=== PATIENT | female | born 1945 | race Caucasian/White ===

== ENCOUNTER 2017-06-12 09:03 | Day surgery (SDC) | payer MEDICARE ==
[~2017-06-12] VITALS: Ht 162.6 cm; Wt 72.6 kg
[~2017-06-12 09:03] MED LIST: ARMOUR THYROID60 MG PO; CALCIUM WITH M1 EACH PO; CALCIUM500 MG PO; CITALOPRAM HBR40 MG PO; D3-5050000 UNIT PO; ESTRADIOL2 MG PO; LEVOTHYROXINE75 MCG PO; MAXZIDE 75 MG-501 EA PO; PREDNISONE20 MG PO; RESTORIL15 MG PO; SERTRALINE HCL25 MG PO; SPIRIVA18 MCG IH; SYMBICORT 16010.2 GM IH; TRIAMTERENE-HC1 EAC1 PO; VENTOLIN HFA18 GM INH; VITAMIN D35000 UNIT PO; ZOLOFT50 MG PO
[2017-06-12] MEDS ORDERED: PANTOPRAZOLE SO40 MG PO (09:54)
[2017-06-12] MEDS ORDERED: METOPROLOL SUCC25 MG PO (09:55)
[2017-06-12] MEDS ORDERED: LEVOXYL75 MCG PO (09:56)
[2017-06-12] MEDS ORDERED: VITAMIN D5000 UNIT PO (10:24)
[2017-06-12] MEDS ORDERED: NEURONTIN300 MG PO (10:26)
--- NOTE | 2017-06-12 11:09 | NUR ---
THIS RN ASKED TO DELIVER PRE OP MEDICATIONS AND HAVE FLU VACCINE CONSENT SIGNED. CONSENT SIGNED BEFORE MEDICATIONS WERE GIVEN. WARM BLANKETS PROVIDED ANS WARM AIR TUNRED ON. BED RAILS UP, CALL LIGHT WITHIN REACH.
--- NOTE | 2017-06-12 12:07 | NUR ---
PATIENT BACK IN DAY SURGERY ROOM DIRECTLY FROM OR. C/O PAIN IN BILATERAL SHOULDERS. DENIED NEED FOR PAIN MEDICATION. PATIENT DROWSY, BUT AWAKENS EASILY TO VOICE. RIGHT CHEEK SURGICAL SITE WNL WITH OINTMENT COVERING INCISION. NO DRAINAGE SEEN. IV SITE WNL. GIVEN SIPS OF ICE WATER. WILL LET PATIENT REST/SLEEP. CALL LIGHT WITHIN REACH. AT BEDSIDE.
--- NOTE | 2017-07-10 15:10 | OR ---
[facility] [address], [place] [address] Signed DATE OF PROCEDURE: 06/12/17 PREOPERATIVE DIAGNOSIS: Right facial lesion. POSTOPERATIVE DIAGNOSIS: Right facial lesion. PROCEDURE: Wide local excision, right facial lesion. SURGEON: Ayush Washburn M.D. ANESTHESIA: General mask, Rufina Heaton CRNA. PREOP HISTORY Catalina is a 71-year-old lady with a pigmented lesion on the right face just at the right infraorbital rim. This has been growing. It is a dark pigmented lesions suspicious for neoplasia and she is taken to the operating room for the above-mentioned procedures. OP ERATIVE PROCEDURE AND FINDINGS After informed consent, the patient was taken to the operating room, placed in supine position where general mask anesthesia was induced. The patient, procedure were verified. The right facial lesion was identified just on the right at the level of the infraorbital rim, measured about 15 x 20 mm was a slightly raised irregular lightly pigmented lesion. The right face was sterilely prepped and draped. Incision was drawn in a transverse direction with a mm to margins. Local anesthetic 1% Lidocaine with Epi was injected. The incision was made in an elliptical pattern about 4 cm in length. Skin lesion was excised with the subcutaneous dissection sent to pathology with a suture in the superior edge in formalin. The hemostasis was obta i steve with needle point cautery. The wound edges were elevated for cm or so to allow for tension-free closure. Closure was with 4-0 interrupted Vicryl subcu and 5-0 running nylon on the skin. Excellent cosmetic closure was obtained. Skin was cleansed and Neosporin was applied. The patient was awakened, transported to same day surgery in good condition. No complications. Blood loss minimal. Specimen to pathology, no drains. Ayush Washburn MD GC/Modl Electronically Signed By: AYUSH WASHBURN MD 07/10/17 1510 PATIENT NAME: QUENTIN PEREZ OPERATIVE REPORT DATE OF : 43 PHYSICIAN: AYUSH WASHBURN MD REPORT #: [id number] REPORT IS CONFIDENTIAL AND NOT TO BE RELEASED WITHOUT AUTHORIZATION [address] [address] Signed /[id number] cc: Farooq Walker DO Electronically Signed By: AYUSH WASHBURN MD 07/10/17 1510 PATIENT NAME: QUENTIN PEREZ OPERATIVE REPORT DATE OF : 43 PHYSICIAN: AYUSH WASHBURN MD REPORT #: [id number] REPORT IS CONFIDENTIAL AND NOT TO BE RELEASED WITHOUT AUTHORIZATION
== END 2017-06-12 13:18 | disposition home or self-care (01) ==
LOC: OPS 09:03 → DS 09:03 → OPS 12:00 → DS 12:00 → OPS 13:18
PROVIDERS: Otolaryngology
PROC: 0HB1XZZ Excision of Face Skin, External Approach (ICD-10-PCS; principal; 2017-06-12 12:00)
DX: L57.0 Actinic keratosis (principal); L81.4 Other melanin hyperpigmentation; J44.9 Chronic obstructive pulmonary disease, unspecified; E03.9 Hypothyroidism, unspecified; F32.9 Major depressive disorder, single episode, unspecified; I10 Essential (primary) hypertension; K21.9 Gastro-esophageal reflux disease without esophagitis; Z79.899 Other long term (current) drug therapy; Z90.49 Acquired absence of other specified parts of digestive tract; Z90.710 Acquired absence of both cervix and uterus; Z23 Encounter for immunization
CPT/HCPCS: 00300; 88305; 90662; G0008; J2250; J2405; J2704

== ENCOUNTER 2017-07-12 08:55 | Day surgery (SDC) | payer MEDICARE ==
[~2017-07-12] VITALS: Ht 162.6 cm; Wt 74.4 kg
[~2017-07-12 08:55] MED LIST changes: +LEVOXYL75 MCG PO; +METOPROLOL SUCC25 MG PO; +NEURONTIN300 MG PO; +PANTOPRAZOLE SO40 MG PO; +VITAMIN D5000 UNIT PO
--- NOTE | 2017-07-12 11:31 | NUR ---
07/12/17 1131 Annmarie Pugh 1123 EDIT: PT ON 8L VIA MASK ON ARRIVAL.
--- NOTE | 2017-07-12 19:13 | EKG ---
[facility] [address] [facility] [place] [address] Signed Normal sinus rhythm Right atrial enlargement Borderline ECG No previous ECGs available Confirmed by ISIS MORTON MD ([id number]) on 07/12/2017 7:13:43 PM Electronically Signed By: ISIS MORTON MD 07/12/171912 PATIENT NAME: QUENTIN PEREZ Dany Electrocardiogram DATE OF : 43 PHYSICIAN: ISIS MORTON MD REPORT #: [id number] REPORT IS CONFIDENTIAL AND NOT TO BE RELEASED WITHOUT AUTHORIZATION
--- NOTE | 2017-07-13 07:49 | OR ---
[facility] [address], [place] [address] Signed DATE OF OPERATION: 07/12/2017 SURGEON: Mauri Rogers MD PREOPERATIVE DIAGNOSES: 1. Diarrhea alternating with constipation. 2. History of cholecystectomy in 2004. 3. Significant chronic obstructive pulmonary disease with home oxygen 3 L nasal cannula. 4. Family history of colitis. No family history of colon cancer. POSTOPERATIVE DIAGNOSES: 1. Scattered sigmoid and left-sided diverticular changes. 2. Polyps x2 (sigmoid and rectum). PROCEDURE: Total colonoscopy to cecum with cold morcellation polypectomy x1 and cold snare polypectomy x1. ANESTHESIA: Intravenous sedation propofol infusion. Mauri Hernandez CRNA INDICATION: This 71-year-old white woman is a patient of Dr. Farooq Walker and last seen by me in 2004 until recently where she was referred by Dr. Farooq Walker for consideration of diarrhea alternating with constipation. She underwent cholecystectomy in 2004. She has had diverticula documented in the past. She has no family history of colon cancer, but does have family history of colitis in her mother. She does have other medical problems including advanced COPD for which she requires home oxygen at 3 L nasal cannula. She is admitted at this time to undergo colonoscopy to better characterize her problem of diarrhea alternating with constipation. She understands the risks of bleeding, infection, and perforation related to colonoscopy and wished to proceed. FINDINGS: The prep was excellent. Complete colonoscopy was undertaken to the cecum. There was scattered diverticula of the sigmoid and left colon. There were two small polyps, one of the rectum, one of the sigmoid, both were excised completely, likely they were hyperplastic. They did not appear worrisome. The remaining colon was normal. Electronically Signed By: MAURI ROGERS MD 07/13/17 0749 PATIENT NAME: QUENTIN PEREZ OPERATIVE REPORT DATE OF : 43 PHYSICIAN: MAURI ROGERS MD REPORT #: [id number] REPORT IS CONFIDENTIAL AND NOT TO BE RELEASED WITHOUT AUTHORIZATION [facility] [address], [place] [address] Signed PROCEDURE IN DETAIL: The patient was brought to the endoscopy suite and placed in lateral decubitus position, given intravenous sedation with propofol infusional technique by the hospice case manager with full cardiopulmonary monitoring. Digital rectal examination was normal. An Olympus video colonoscope was passed in the rectum and manipulated throughout the colon, ultimately intubating the cecum itself. The ileocecal valve and appendiceal orifice were normal. The scope was withdrawn from that point. Examination throughout showed no sign of abnormality until the left colon and sigmoid diverticula were again noted. Further withdrawal of scope to the sigmoid showed a small sessile polyp approximately 4 to 6 mm in size. This was excised with cold snare polypectomy technique. The scope was withdrawn further and another similar polyp was noted in the rectosigmoid. This was excised with cold morcellation technique. Retroflexed view was unremarkable overall. The scope was removed, and patient was taken to recovery room in good condition. CONCLUDING DIAGNOSES: Polyps x2 and sigmoid and left-sided diverticulosis. PLAN: Recommend Citrucel 1 tablespoon each day. If she is still troubled in her bowel habits, she will let me know, we will work on that. She will return to the ongoing care of otherwise. Mauri Rogers MD JM/MODL /[id number] Electronically Signed By: MAURI ROGERS MD 07/13/17 0749 PATIENT NAME: QUENTIN PEREZ OPERATIVE REPORT DATE OF : 43 PHYSICIAN: MAURI ROGERS MD REPORT #: [id number] REPORT IS CONFIDENTIAL AND NOT TO BE RELEASED WITHOUT AUTHORIZATION [address] [address] Signed cc: Farooq Walker DO Electronically Signed By: MAURI ROGERS MD 07/13/17 0749 PATIENT NAME: QUENTIN PEREZ OPERATIVE REPORT DATE OF : 43 PHYSICIAN: MAURI ROGERS MD REPORT #: [id number] REPORT IS CONFIDENTIAL AND NOT TO BE RELEASED WITHOUT AUTHORIZATION
== END 2017-07-12 12:25 | disposition home or self-care (01) ==
LOC: OPS 08:55 → DS 08:55 → OPS 10:00
PROVIDERS: Surgery
PROC: 0DBE8ZX Excision of Large Intestine, Via Natural or Artificial Opening Endoscopic, Diagnostic (ICD-10-PCS; 2017-07-12)
PROC: 0DBP8ZX Excision of Rectum, Via Natural or Artificial Opening Endoscopic, Diagnostic (ICD-10-PCS; principal; 2017-07-12 10:30)
DX: D12.6 Benign neoplasm of colon, unspecified (principal); K62.1 Rectal polyp; K57.30 Diverticulosis of large intestine without perforation or abscess without bleeding; J44.9 Chronic obstructive pulmonary disease, unspecified; I10 Essential (primary) hypertension; Z88.8 Allergy status to other drugs, medicaments and biological substances; Z90.49 Acquired absence of other specified parts of digestive tract; Z87.891 Personal history of nicotine dependence; Z79.899 Other long term (current) drug therapy
CPT/HCPCS: 00810; 36600; 80053; 82803; 88305; 93005; 93010; J2704

== ENCOUNTER 2020-08-25 19:51 | Inpatient (IN) | payer MEDICARE ==
[~2020-08-25] VITALS: Ht 162.6 cm; Wt 80.5 kg
[2020-08-25] MEDS ORDERED: FUROSEMIDE40 MG PO (20:46)
[2020-08-25] MEDS ORDERED: IPRAT-ALBUT 0.5-3 ML INH (20:47)
[2020-08-25] MEDS ORDERED: METOPROLOL SUCC50 MG PO (20:47)
[2020-08-25] MEDS ORDERED: PREDNISONE10 MG PO (20:47)
[2020-08-25] MEDS ORDERED: GABAPENTIN300 MG PO (20:47)
[2020-08-25] MEDS ORDERED: IBUPROFEN600 MG PO (20:48)
[2020-08-25] MEDS ORDERED: SERTRALINE HCL100 MG PO (20:48)
[2020-08-25] MEDS ORDERED: LEVOTHYROXINE50 MCG PO (20:48)
--- NOTE | 2020-08-26 01:04 | NUR ---
2250 PT WAS INTUBATED UPON ARRIVAL TO THE ED. PT BROUGHT DOWN TO CCU VIA STRETCHER WITH BELONGINGS AND . RT AND RN ASSISTED WITH TRANSFER AND MANAGEMENT OF VENTILATOR. PT TRANSFERRED OVER TO CCU BED AND PLACED ON MONITORS. DR. TIJERINA NOTIFIED DUE TO VENTILATOR SETTINGS NOT ASSISTING PT EXPECTED. PRN ATIVAN GIVEN PER HER ORDERS AND SETTINGS CHANGED. VENTILATOR AT40% FIO2,400 VT, 22RR, PEEP OF 5. PIP CURRENTLY AROUND 55. PT STARTED ON IV MEDICATIONS (SEE NOV) AND SWITCHED OVER FROM KETAMINE TO MIDAZOLAM PER DR ORTEGA ORDERS. MIDAZOLAM CURRENTLY INFUSING AT 2MG/HR (4ML/HR). ASSESSMENT OF PT COMPLETE. SOFT RESTRAINTS IN PLACE, CMS INTACT. IV MEDICATION INFUSING AT ORDERED RATE SPO2 AT 100%, ETCO2 A 57, RASS SCORE OF -4. WILL CONTINUE PLAN OF CARE.
--- NOTE | 2020-08-26 02:32 | NUR ---
THIS RN IN TO ASSESS PT. IV LEVAQUIN COMPLETE, IV FLUIDS AND MIDAZOLAM INFUSING BEFORE (SEE MAR). PT REPOSITIONED ON BED AND RESTRAINTS RETIED. CMS INTACT. PT SUCTIONED. WHEN ASKED IF PT WAS IN PAIN PT NODDED YES. PRN FENTANYL GIVEN PER ORDERS (SEE MAR). VENTILATOR SETTINGS ON AT PREVIOUS SETTINGS (SEE PRIOR NOTE). SPO2 AT 100%, ETCO2 46, RR AT 22. WILL CONTINUE PLAN OF CARE.
--- NOTE | 2020-08-26 03:31 | NUR ---
PT IN BED, VENTILATOR ON PREVIOUS SETTINGS. IV FLUIDS STILL INFUSING AT ORDERED RATE, MIDAZOLAM TITRATING AT 4ML/HR ORDERED. PT IN NO APPARENT DISTRESS. SPO2 100%, RR 22. WILL CONTINUE PLAN OF CARE.
--- NOTE | 2020-08-26 04:33 | NUR ---
THIS RN IN TO ASSESS PT. PT MIDAZOLAM TITRATED UP TO 3G/HR AND PRN FENTANYL GIVEN PT BECAME RESTLESS DURING ASSESSMENT. ORAL SUCTIONING AND ORAL CARE DONE ON PT. VENTILATOR AT PREVIOUS SETTINGS (SEE PREVIOUS NOTES). PT NOW IN NO APPARENT DISTRESS, WILL CONTINUE PLAN OF CARE.
--- NOTE | 2020-08-26 05:22 | NUR ---
DR. TIJERINA NOTIFIED OF PTS DECREASED URINE OUTPUT AND EXPIRATORY WHEEZES. DR TIJERINA GAVE A VERBAL ORDER FOR A 500ML BOLUS OF NORMAL SALINE AND Q4 PRN ALBUTEROL TREATMENT. WILL CONTINUE PLAN OF CARE.
--- NOTE | 2020-08-26 07:30 | NUR ---
HANDOFF FROM [employer] RT WAS AT BEDSIDE. ABG WAS OBTAINED SENT TO LAB. PT VENT SETTING WERE CHECKED AND DISCUSSED PATIENT HAD HIGH PEAK PRESSURE AND LOW TIDAL ALARMS DURING THE NIGHT. PATIENT EET TUBE WAS CHECKED AND SECURE BITEBLOCK IN PLACE, TUBE PLACEMENT WAS 7.0 EET 25 @LIP , TUBE PLACEMENT WAS VERIFYED BY CHEST XRAY TO BE GOOD. LOW TIDAL VOLUME ALARM WAS LIKELY DUE TO A COMBINATIONS OF HIGH PEAK PRESSURE LIMITATION WELL A FAULTY INLINE LIM SUCTION UNIT. HME, LIM SUCTION UNIT AND ENDTIDAL WAS REPLACED LOW TIDAL ALARM AND TIDAL VOLUME RETURN NORMALIZED. PEAK PRESSURE STILL IN THE 50S SUGESTING POSSIBLE MORE SEDATION WAS NEEDED. PT VITALS , END TIDAL WERE ALL STABLE DESPITE ALARMS AND ABG RELFLECTED GOOD VENTILATION . PT SETTING WERE APPROPRIATE AND PASS OFF WILL CONTINUE WITH SETTING UNTELL WEANING TRIAL THIS AM .
--- NOTE | 2020-08-26 07:34 | NUR ---
0530 RN IN TO ASSESS PT DUE TO PT. BEING RESTLESS IN THE BED AND GAGGING. PT SUCTIONED, YELLOW FLUID NOTED DRIPPING OUT OF THE PTS MOUTH. IV BOLUS OF NS STARTED. VENT SETTINGS LEFT AT PREVIOUS SETTINGS. VERSED 0600 VERSED TITRATED UP TO 4MG/ML DUE TO PT BEING RESTLESS WHILE ASSESSING FOR LAB DRAW. 0700 LABS DRAWN BY RT JL IN ROOM TO DRAW ABG. SPO2 HAS REMAINED AT 100, RR AT 22. WILL CONTINUE PLAN OF CARE.
--- NOTE | 2020-08-26 07:50 | NUR ---
DR TIJERINA UPDATED ON PT'S STATUS ON YELLOW BILE CONTENTS, ABNORMAL LABS (MAGNESIUM AND PHOSPHOROUS), AND LOW URINE OUTPUT. NEW ORDERS GIVEN TO PLACE AN OG TUBE. WILL CONTINUE PLAN OF CARE.
--- NOTE | 2020-08-26 08:00 | NUR ---
THIS RN IN TO PLACE OG TUBE PER DR. TIJERINA'S ORDERS. OG TUBE INSERTED, PT TOLERATED PROCEDURE, CLEAR/YELLOW GASTRIC CONTENTS SEEN IN OG TUBE. X-RAY WILL BE IN TO CONFIRM PLACEMENT BEFORE STARTING SUCTION. WILL CONTINUE PLAN OF CARE.
--- NOTE | 2020-08-26 08:15 | NUR ---
Spoke with pt's spouse, Garo, as pt remains on vent. He states she has been declining and remains in the home, she is able to walk 20 ft to bathroom. He states he is in need of a transport wc and also feels they have hit a point where they need a caregiver in the home. I will give him the [facility] site [email or web address]. I gave him the information for [facility] to check if they have a transport chair as medicare will not provide.
--- NOTE | 2020-08-26 08:35 | NUR ---
vent setting changed at the bedside by Courtney MCCURDY, fiO2 to 35%, and rate to 20. pt is calm at this time, rass score is -1, appears to be edmund the vent, no visable signs of distress, hands are relaxed and eyes are closed. pt O2 sat is 100%
--- NOTE | 2020-08-26 08:50 | NUR ---
AT THE BEDSIDE DISCUSSING THE PLAN OF CARE FOR THE DAY WITH THIS RN AND BROCK FROM RT. PT OPENS EYES OCCASIONALLY, IS CALM, NODS HEAD TO DIRECT QUESTIONS. VITALS ARE STABLE AT THIS TIME. O2 SAT IS 99%.
--- NOTE | 2020-08-26 09:40 | NUR ---
medazolam drip titrated down to 3 mg/hr from 4mg/hr for plan to lighten sedation in preparation for extubation.
--- NOTE | 2020-08-26 09:50 | NUR ---
medazolam drip titrated to 2 mg/hr.
--- NOTE | 2020-08-26 10:00 | NUR ---
pt's spouse Simone is here at the bedside. discussed plan of care for the day.
--- NOTE | 2020-08-26 10:15 | NUR ---
medazolam drip off at this time in preparation to extubate pt. pt has eyes closed at this time only opens to noxious stimuli. pt not verbal, however moves hands, legs, and arms during stimuli.
--- NOTE | 2020-08-26 10:37 | NUR ---
pt sucessfully extubated by Courtney MCCURDY, this RN at the bedside to assist. pt opens eyes, follows directions, does not speak. bipap placed immediatly, pt then closes eyes. spo2 remains mid 90's.
--- NOTE | 2020-08-26 12:58 | NUR ---
PT ON VENT, WILL TRY TO CONNECT WITH SPOUSE.
--- NOTE | 2020-08-26 14:30 | NUR ---
HUMPHREY CATH CARES DONE ON PT, PT ROUSES SLIGHTLY TO THIS, OPENS EYES, IS REASSUREABLE WITH TALK.
--- NOTE | 2020-08-26 14:39 | NUR ---
DOCTOR WOULD LIKE TO TITRATE OXYGEN TO 90-92 , PT WEARS 4LPM AT HOME WHICH CORRELATES TO 32%. DECREASED FIO2 FROM 35% TO 32 % TO MATCH PATIENT HOME PRESCRIPTION. PT IS STILL NOT WAKEFUL. WE WILL REEVAULATE AT 1600 AND GIVE A BREATHING TREATMENT IF PATIENT IS STILL NOT WAKEFUL A BLOODGASE MAY BE HELPFUL. ALL VITALS CURRENTLY LOOK STABLE.
--- NOTE | 2020-08-26 14:45 | NUR ---
IV SITE IN RT FOREARM DC'D IT WAS NOT PATENT. PT PANCHO WELL. IV SITE IN LEFT FORARM IS INTACT, FLUSHES EASILY, NO REDENSS OR SWELLING NOTED.
--- NOTE | 2020-08-26 16:35 | NUR ---
IV SITE IN LEFT FORARM IS INTACT, NO REDNESS OR SWELLING NOTED, FLUIDS INFUSE EASILY. HEEL PROTECTORS APPLIED TO BILAT FEET.
--- NOTE | 2020-08-26 17:01 | NUR ---
PT HAS BIPAP MASK OFF AND IS ON 4L VIA NC. PT IS DROWSY, BY ABLE TO KEEP EYES OPEN AND CAN ANSWER MOST QUESTIONS. PT REPORTS THAT HER THROAT IS SLIGHTLY PAINFUL. EDUCATED PT ABOUT POST-INTUBATION DISCOMFORT. PT'S SPOUSE IS AT THE BEDSIDE AND ABLE TO TALK WITH HER. PT PANCHO A FEW SIPS OF WATER WELL. PT O2 SATS REMAIN AT 93% OR HIGHER. ALL OTHER VITAL ARE STABLE. PLAN IS MADE TO GIVE PT A BREAK OFF BIPAP FOR A WHILE, LONG O2 SATS REMAIN 90% OR BETTER.
--- NOTE | 2020-08-26 17:41 | NUR ---
CALLED TO REPORT 14 SECOND RUN OF SVT. TO RESTART PT LOPRESSOR THIS EVENING, SHE WILL PUT IN THE ORDER.
--- NOTE | 2020-08-26 18:00 | NUR ---
PT BACK ON BIPAP FOR DESAT TO 88% ON 4L 02 VIA NC.
--- NOTE | 2020-08-26 18:47 | NUR ---
pt repostioned in bed, all linens changed on the bed including gown. pt then has bipap off and 4L NC on in place. pt requests and is given a sip of water. pt able to follow direction easily, responds appropriatly.
--- NOTE | 2020-08-26 19:03 | NUR ---
bipap back in place, pt is cooperative.
--- NOTE | 2020-08-26 19:51 | NUR ---
SHIFT REPORT RECEIVED FROM YRN VILLAFUERTE. PT CURRENTLY IS RESTING WITH BIPAP IN PLACE 24/04 @32%. RR:23, SPO2:95%, HR:99. R.T. IN ROOM AT THIS TIME TO ADMINISTER NEB TREATMENT.
--- NOTE | 2020-08-26 20:30 | NUR ---
ASSESSMENT COMPLETED. PT WOKE EASILY WHEN SPOKEN TO, SOMEWHAT SLOW TO RESPOND BUT ORIENTED. REMOVED BIPAP AND PLACED ON 4L O2 VIA NC TO TAKE EVENING MEDS. DENIES PAIN. REPORTS HER CHEST FEELS TIGHT AND SHE APPEARS DYSPNIC. APPEARS ANXIOUS/FEARFUL AND ASKS "AM I GOING TO MAKE IT?" REASSURED PT THAT SHE IS IN A SAFE PLACE AND THAT WE WILL GET HER BACK ON BIPAP KAYLI SINCE THAT IS WHAT IS GOING TO HELP HER THE MOST AT THIS TIME. PRN ATIVAN GIVEN FOR ANXIETY. PT HAS HAD 2 RUNS OF SVT: 1ST AT 2019 THAT LASTED ABOUT 30 SECONDS WITH A RATE OF 159 AND THE 2ND AT 2027 THAT LASTED ABOUT 24 SECONDS WITH A RATE OF 161. BP REMAINED STABLE DURING EPISODES, SCHEDULED LOPRESSOR GIVEN. RESTING HR IS 100-105. LUNGS SOUND EXTREMELY DIM WITH EXPIRATORY WHEEZES, ACCESSORY MUSCLE USE NOTED. BOWEL TONES HYPOACTIVE, DENIES NAUSEA. REDNESS NOTED UNDER PANNUS, NYSTATIN REMAINS IN PLACE. 1+ EDEMA TO BLE. HEEL PROTECTORS IN PLACE. IV PATENT AND INTACT, FLUIDS INFUSING WNL. HUMPHREY PATENT, CATH CARE PROVIDED. PT BRUSHED HER OWN TEETH AND TOOK A FEW SIPS OF WATER. BIPAP PLACED BACK ON PT, SETTINGS UNCHANGED.
--- NOTE | 2020-08-26 22:01 | NUR ---
IN TO GIVE SCHEDULED MEDS. PT CONTINUES TO SLEEP WITH BIPAP IN PLACE. RESPIRATIONS APPEAR SOMEWHAT LABORED, BUT VITAL SIGNS ARE STABLE. RR:21, SPO2:97%, HR:91.
--- NOTE | 2020-08-26 23:10 | NUR ---
IN TO START SCHEDULED ANTIBIOTIC, PT APPEARING MORE ANXIOUS/AGITATED, PULLING ON MASK AND RR INCREASED TO 32 WHILE SPO2 DECREASED TO 90%. PRN ATIVAN GIVEN AND PT NOW APPEARING MORE RELAXED.
--- NOTE | 2020-08-27 00:15 | NUR ---
PT ASLEEP AT THIS TIME, BIPAP REMAINS IN PLACE, SETTINGS UNCHANGED. RESPIRATIONS APPEAR LABORED, RATE REMAINS 16-24, LUNGS SOUNDS ARE EXTREMELY DIM THROUGHOUT. HR REGULAR, RATE IN 80'S, BP STABLE. IV SITE REMAINS INTACT, FLUIDS INFUSING WNL. HUMPHREY PATENT. WILL ALLOW FOR REST AND CONTINUE TO MONITOR.
--- NOTE | 2020-08-27 02:48 | NUR ---
PT CONTINUES TO SLEEP, BIPAP REMAINS IN PLACE. RR:30, HR:93, SPO2:92%.
--- NOTE | 2020-08-27 04:32 | NUR ---
R.T. IN ROOM TO GIVE BREATHING TREATMENT, HE REMOVED BIPAP TO GIVE PT A SIP OF WATER AND PT SATS QUICKLY DROPPED TO 75%. BIPAP PLACED BACK ON PT AND TREATMENT GIVEN. AFTER NEB WAS COMPLETED, SATS NOW 90%; PLACED ON 4L NC SO THAT I COULD ASSIST WITH ORAL CARE. PT REPORTS ANXIETY, PRN ATIVAN GIVEN AND BIPAP AGAIN PLACED ON PT. LUNGS REMAIN DIM THROUGHOUT. HR REGULAR. EDEMA UNCHANGED. HUMPHREY REMAINS PATENT. IV INTACT AND PATENT. DISCUSSED WITH PT THAT I WILL NEED TO COME DRAW BLOOD FOR MORNING LABS AND WILL LIKELY PLACE A NEW IV AT THAT TIME, PT AGREEABLE. CALL LIGHT WITHIN REACH.
--- NOTE | 2020-08-27 06:17 | NUR ---
IN TO DRAW MORNING LABS, NEW 20G IV STARTED IN RIGHT HAND AND BLOOD DRAWN FROM THAT SITE; 1ST ATTEMPT, PT TOLERATED WELL. FLUIDS SWITCHED TO NEW SITE. LEFT HAND IV DRESSING CHANGED AND SALINE LOCKED. BIPAP MASK REMOVED FOR ORAL CARE AND LEFT OFF FOR ABOUT 20 MINUTES WITH 4L O2 VIA NC IN PLACE. PT TOLERATED WELL MAINTAINED SATS IN UPPER 90%, PT ABLE TO COUGH, SOUNDS CONGESTED; WEAK EFFORT. BIPAP PLACED BACK ON PT. CALL LIGHT WITHIN REACH.
--- NOTE | 2020-08-27 06:58 | NUR ---
PT PULLING ON BIPAP MASK, ASKING FOR IT TO COME OFF. PLACED ON 4L O2 VIA NC AND THEN TURNED UP TO 5L PER PT REQUEST. SPO2 CURRENTLY 95%. NOSE REDDENED, ASKED R.T. TO BRING SKIN PROTECTANT WITH THEIR MORNING ROUNDS. PT HAS CALL LIGHT WITHIN REACH.
--- NOTE | 2020-08-27 08:29 | NUR ---
PT PLACE BACK ON BIPAP FOR INCREASED WOB WITH NC IN PLACE. PT RESP RATE 32.
--- NOTE | 2020-08-27 08:45 | NUR ---
BOTH IV SITES ARE INTACT, NO REDENSS OR SWELLING NOTED, FLUIDS AND FLUSHES INFUSE EASILY.
--- NOTE | 2020-08-27 09:18 | NUR ---
PT STILL SHOWING WOB WITH BIPAP IN PLACE. RESP RATE IS 19, O2 SATS ARE 92%. HEART RATE IS ALSO DECREASED TO 83 FROM 94.
--- NOTE | 2020-08-27 09:40 | NUR ---
AT APPROXIMATLY 0932 CALLED TO UPDATE ON PT WOB, ORDER GIVEN FOR IV MORPHINE. CALLED MARIA ESTHER FROM [facility] TO UPDATE ON PT WOB WELL. AT 0940 AND MARIA ESTHER ARE OUTSIDE THE ROOM TO OBSERVE PT, PLAN OF CARE DISCUSSED TO GIVE MORPHINE AND ADJUST SOME BIPAP SETTINGS.
--- NOTE | 2020-08-27 09:45 | NUR ---
2 MG IV MORPHINE GIVEN. RT AT BEDSIDE ADJUSTING SETTINGS.
--- NOTE | 2020-08-27 10:15 | NUR ---
PT'S SPOUSE LEONARDO HERE, DISCUSSING PLAN OF CARE, AND CODE STATUS WITH HIM.
--- NOTE | 2020-08-27 10:31 | NUR ---
bipap off and 5L 02 placed via NC to enable pt to talk with spouse. pt not able to respond verbally to questions, talking appears to require a lot of effort for pt. pt does open her eyes, appears to recognize her spouse. pt not able to answer questions about her wishes for intubation at this time.
--- NOTE | 2020-08-27 10:56 | NUR ---
bipap back in place for increased wob.
--- NOTE | 2020-08-27 11:28 | NUR ---
pastoral care, Krish Salas, speaking with pt's spouse Simone for spritual support.
--- NOTE | 2020-08-27 12:11 | NUR ---
bipap off pt for brief break, NC placed back on at 5L. Simone, pt's spouse, at the bedside attempting to ask questions about pt wishes for further care. pt having difficulty talking, gasping between words.
--- NOTE | 2020-08-27 12:38 | NUR ---
PTON BI-PAP, NEEDED TO TALK. SPENT QUITE A BIT OF TIME WITH HIM, HELPING SORT OUT SOME OF THE ISSUES HE IS FACING WITH PT'S CARD. HE HAS COMMUNICATED WITH HER KIDS, THEY BASICALLY SAY FOR HIM TO DO WHAT HE THINKS IS BEST. HE REQUESTED PRAYER FOR DIRECTION-LEONARDO NOT MUCH OF A CONGREGATIONAL GOER, BUT SAYS HE BELIEVES. PT HAD A VISION LAST WEEK, WONDERS IF IT WAS GOD PREPARING HER FOR HER . DEBRIEFED, GAVE COMFORT, LAUREL AND DENG. PLACED IN CHART THAT SHE WISHES CREMATION BUT NO PREFERENCE FOR HOME IF PLACED ON COMFORT CARE. WILL FOLLOW NEEDED
--- NOTE | 2020-08-27 13:10 | NUR ---
pt's adult children at the bedside plus one grandchild, Simone also at the bedside.
--- NOTE | 2020-08-27 14:15 | NUR ---
DEFER TALKING WITH FAMILY AT THIS TIME. SPOKE WITH DR TIJERINA AND PASTOR [place] EARLIER AND FAMILY IS MAKING A DECISION ON CHANGING TO COMFORT CARE AT THIS TIME. PATIENT IS NOT DISCHARGABLE AT THIS TIME. WILL LET FAMILY HAVE TIME TO MAKE HARD DECISION. DISCUSSED WITH MD THAT THEY CAN CALL ME IF NEEDED.
--- NOTE | 2020-08-27 14:30 | NUR ---
PT REPOSITIONED UP IN BED WITH PILLOWS UNDER BILAT HIPS FOR COMFORT AND SKIN HEALTH. HUMPHREY CATH CARES DONE. RASH UNDER BELLY WASHED WITH SOAPY WATER, RINSED, AND DRIED, THEN NYSTOP POWDER APPLIED TO AFFECTED AREA. RECTAL SUPPOSITORY GIVEN DUE TO CONSTIPATION. PT PANCHO WELL.
--- NOTE | 2020-08-27 16:10 | NUR ---
pt placed back on BIPAP for desat to 88% with 4L O2 via NC. family is at the bedside, all questions answered.
--- NOTE | 2020-08-27 16:35 | NUR ---
pt off bipap at this time and on 5L NC to enable pt to talk with grandson at the bedside.
--- NOTE | 2020-08-27 17:52 | NUR ---
comfort tray delivered for the family of pt.
--- NOTE | 2020-08-27 19:03 | NUR ---
pt placed back on the bipap for elevated hr and resp rate.
--- NOTE | 2020-08-27 20:00 | NUR ---
PT'S CALLS, STATES THAT PT IS ATTEMPTING TO SAY SOMETHING BUT HE IS UNSURE WHAT. [facility] DIRECTOR TO ROOM. PT STATES THAT HER MASK IS HURTING HER NOSE, READJUSTED. PT STATES THAT SHE IS "CHOKING" AND CANNOT GET A DEEP BREATH. RT CALL FOR NEB TX. PRN MS ADMINISTERED, SEE EMAR. PT AND DENY FURTHER NEEDS AT THIS TIME. CALL LIGHT IN REACH.
--- NOTE | 2020-08-27 20:50 | NUR ---
ASSESSMENT COMPLETED. PT SOMEWHAT DROWSY AND FORGETFUL. REQUESTS TO TAKE OFF BIPAP AT THIS TIME TO VISIT WITH FAMILY, 4L O2 VIA NC IN PLACE. DENIES PAIN. LUNGS DIM THROUGHOUT. HR REGULAR. BOWEL TONES ACTIVE, DENIES NAUSEA. SKIN GROSSLY INTACT, 1+EDEMA TO BUE, TRACE EDEMA TO BLE. IV TO RIGHT HAND INTACT, FLUIDS INFUSING WNL. IV TO LEFT HAND LEAKING, D/C'D, CATHETER TIP INTACT. HUMPHREY PATENT, CATH CARE PROVIDED. MULTIPLE FAMILY MEMBERS IN ROOM. ORAL CARE PROVIDED FOR PT.
--- NOTE | 2020-08-27 21:50 | NUR ---
PT'S CALLED STATING THAT HE THOUGH PT MAY HAVE HAD BM. PT DID HAVE SMALL SOFT BM, PERICARE PROVIDED, NEW CHUX IN PLACE. PT'S BREATHING APPEARS MORE LABORED, PLACED BACK ON BIPAP. PT REPORTS ANXIETY RELATED TO WORK OF BREATHING AND WEARING THE BIPAP, PRN ATIVAN GIVEN.
--- NOTE | 2020-08-27 23:01 | NUR ---
MD AWARE OF PT'S DECREASING URINE OUTPUT AND PINK-TINGED URINE.
--- NOTE | 2020-08-28 00:30 | NUR ---
ASSESSMENT COMPLETED. PT REQUESTS TO TAKE OFF BIPAP SO THAT SHE CAN VISIT WITH HER GRANDDAUGHTER, PLACED ON 4L O2 VIA NC. LUNGS REMAIN EXTREMELY DIMINISHED THROUGHOUT. ORAL CARE PROVIDED, PT TOLERATED SIP OF WATER WELL. IV INTACT AND FLUIDS INFUSING WNL. PT REPOSITIONED SUPINE WITH ARMS ELEVATED ON PILLOWS. CALL LIGHT WITHIN REACH, FAMILY AT BEDSIDE.
--- NOTE | 2020-08-28 01:00 | NUR ---
PT PLACED BACK ON BIPAP AND PRN ATIVAN GIVEN FOR ANXIETY RELATED TO WORK OF BREATHING AND WEARING BIPAP. GRANDDAUGHTER REMAINS AT BEDSIDE.
--- NOTE | 2020-08-28 02:32 | NUR ---
PT'S GRANDDAUGHTER CAME OUT TO REPORT THAT PT WOKE UP AND WAS EXCLAIMING THAT SHE NEEDED TO GET UP. IN TO CHECK ON PT WHO STATES SHE NEEDS TO HAVE BM. PLACED PT ON BEDPAN, HAD SMEAR OF BM. PERICARE AND NEW LINENS PROVIDED. WHILE PT WAS ON BEDPAN, DESATURATED TO 87-88%, INCREASED FIO2 TO 50%. WAS ABLE TO TITRATE BACK TO 32% ONCE PT WAS REPOSITIONED. PT POSITIONED WITH BILATERAL HIPS FLOATED ON PILLOWS AND BILATERAL ARMS ELEVATED ON PILLOWS. PRN ATIVAN GIVEN FOR ANXIETY RELATED TO WORK OF BREATHING AND WEARING BIPAP.
--- NOTE | 2020-08-28 04:30 | NUR ---
PT'S GRANDDAUGHTER CAME OUT TO REPORT THAT PT WOKE UP AGITATED. IN TO CHECK ON PT, PLACED ON 4L O2 VIA NC TO BETTER UNDERSTAND HER. PT COMPLAINTS OF DRY MOUTH, ORAL CARE PROVIDED WITH SIPS OF WATER. WAS ALSO ABLE TO MAKE OUT THAT PT WAS ASKING IF SHE HAD COVID; TOLD HER THAT HER TEST CAME BACK NEGATIVE. WENT TO GRAB ATIVAN SO THAT PT COULD TOLERATE BIPAP AND WHILE I WAS OUT OF ROOM PT COUGHED UP LARGE AMOUNT OF THICK CLEAR SPUTUM. PT NO LONGER COUGHING, PLACED BACK ON BIPAP. NO OTHER CHANGES FROM PREVIOUS ASSESSMENT. CALL LIGHT WITHIN REACH.
--- NOTE | 2020-08-28 05:45 | NUR ---
IN TO DRAW MORNING LABS, ABLE TO DRAW OFF OF HER IV SITE. PT APPEARS TO BE RESTING COMFORTABLY ON BIPAP. WILL ALLOW FOR REST AND CONTINUE TO MONITOR.
--- NOTE | 2020-08-28 10:39 | NUR ---
, PT'S SPOUSE LEONARDO, AND THIS RN DISCUSSED CODE STATUS. IT IS THE FAMILY'S WISH TO MAKE THE PT A DNR AND DNI AT THIS TIME.
--- NOTE | 2020-08-28 12:30 | NUR ---
TELLY LEADS, SPO2 MONITOR, AND BP CUFF REMOVED TO ASSIST IN MAKING PT MORE COMFORTABLE. FAMILY AT THE BEDSIDE. NO MEANINGFUL RESPONSE FROM PT, SLIGHT MOAN, NO WORDS OR ATTEMPT TO TALK.
--- NOTE | 2020-08-28 14:29 | NUR ---
FULL REPORT GIVEN VIA PHONE TO NEELAM ANGLIN RN, ALL QUESTIONS ANSWERED.
--- NOTE | 2020-08-28 14:45 | NUR ---
PT TRANSPORTED TO ROOM 109 VIA BED, ALL PERSONAL BELONGINGS WENT WITH PT INCLUDING HER FAMILY MEMBERS.
--- NOTE | 2020-08-28 15:33 | NUR ---
MANY FAMILY MEMBERS PRESENT IN THE ROOM PT RESTING SOUNDLY APPEARS RELAXED AND COMFORTABLE, BREATHING AGONAL. ORAL CARE PROVIDED, FAMILY DENY NEEDS OR CONCERNS. ENCOURAGED THEM TO CALL FOR ANY CONCERNS OR NEEDS OF
--- NOTE | 2020-08-28 18:08 | NUR ---
NAHEED IN TO SEE PT AND FAMILY
--- NOTE | 2020-08-28 18:31 | NUR ---
RECEIVED CALL FROM RN THAT PT HAD BEEN MOVED FROM CCU TO [facility] AND IS NOW ON COMFORT CARE. I MET LEONARDO PREVIOUS NIGHT AND INTRODUCED MYSELF AND ASSURED HIM PASTORAL CARE WAS ALWAYS AVAILABLE. HE EXPRESSED APPRECIATION. DURING ROUNDS, VISITED PT, WAS AT BEDSIDE AND NUMEROUS FAMILY MEMBERS; INCLUDING SON FROM [place] AND [id number]. HAD COMFORTABLE SOCIAL VISIT WITH FAMILY. REASSURED THAT PASTORAL CARE IS AVAILABLE ANYTIME. OFFERED PRAYER WHICH FAMILY ACCEPTED AND EXPRESSED APPRECIATION.
--- NOTE | 2020-08-28 19:26 | NUR ---
Pt on comfort care, agonal breathing, O2 4LNC in place. SL RW, f/c with scant amount of dark tara colored urine, generalized edema, arms and le elevated, was turned and reposioned at this time. pt was medicated right at change of shift, at familys request. comfortable at this time. Family in room.
--- NOTE | 2020-08-28 22:00 | NUR ---
pt turned, to R side, legs and arms elevated, f/c care, done, had small liquid bm. Medicated with Ativan 2mg IV per pts request. O2 4L NC family in room
--- NOTE | 2020-08-29 00:24 | NUR ---
pt appears comfortable, calm no distress, O2 4L NC in place. hob elevated,f/c patent. heel protectors in place, elevated extremities. Family in room
--- NOTE | 2020-08-29 02:13 | NUR ---
On O2 $LNC, resp even, unlabored, calmer, Laying on R side. no distress, f/c patent, extremities elevated. on comofrt care, at bedside.
--- NOTE | 2020-08-29 05:26 | NUR ---
Agonal breathing noted, some distress, medicated with Ativan 2mg IV per familys requests. Turned and reposioned. f/c patent.
--- NOTE | 2020-08-29 05:28 | NUR ---
Pt on comfort care, Has been medicated with Ativan x2 per familys requests and pts distress. Agonal breathing noted this time, on 4LNC chronic. Turned and reposioned Q@H. f/c patent, had liquid bm x1, skin care done, nyastatis powder to between panus area. Generalized edema of extremities present. elevated. Family at bedside, they have been doing pts mouth care often. sl patent
--- NOTE | 2020-08-29 07:33 | NUR ---
GRANDDAUGHTER REMAINS IN THE ROOM, PT REPOSITIONED. BREATHING IS AGONAL, STARTING TO RATTLE A BIT. NOC REPORTS EYES WERE GETTING GOOPY. ATROPINE ADMINISTERED WELL MORPHINE FOR EASE OF BREATHING. REFRESH DROPS TO EYES. WASHED FACE. EDUCATION FOR GRAND DAUGHTER PROVIDED, UNDERSTANDING VERBALIZED. FRESH COFFEE TO GUEST TRAY.
--- NOTE | 2020-08-29 09:32 | NUR ---
FULL BED BATH PROVIDED, ORAL, CATH AND SKIN CARE. PT REPOSITIONED TO SIDE. TYLENOL SUPPOS ADMINISTERED PT APPEARS A BIT FEVERISH. GRAND DAUGHTER CONTINUES IN ROOM OTHER FAMILY TO ARRIVE AFTER 10AM. PT APPEARS RESTFUL AND COMFORTABLE.
--- NOTE | 2020-08-29 09:33 | NUR ---
THIS STRIP POLISHER AND RN JA IN ROOM TO GIVE PATIENT A BED BATH AND REPOSITION PATIENT. SKIN CARE, BOOGIE CARE, CATH CARE, ORAL CARE DONE. TOP LINENS AND PILLOW CASES CHANGED. NEW GOWN. PATIENT REPOSITIONED ON RIGHT SIDE. VISITOR IN ROOM. CALL LIGHT IN REACH. NO FURTHER NEEDS AT THIS TIME.
--- NOTE | 2020-08-29 11:57 | NUR ---
MANY FAMILY MEMBERS PRESENT IN THE ROOM. REPOSITIONED PT, ORAL CARE PROVIDED. SHE APPEARS COMFORTABLE, FAMILY AGREE. MAILROOM MESSENGER NOTIFIED OF RINGS GETTING VERY TIGHT, FAMILY WOULD LIKE THEM REMOVED. MAILROOM MESSENGER WORKING ON THIS NOW.
--- NOTE | 2020-08-29 13:42 | NUR ---
PT REPOSITIONED FOR COMFORT AND PAIN RELIEF. APPEARS COMFORTABLE SNORING SOFTLY, RELAXED, FAMILY REMAIN AT BEDSIDE. ORAL CARE DONE. NO MEDICATIONS APPEAR TO BE NEEDED AT THIS TIME
--- NOTE | 2020-08-29 14:49 | NUR ---
PT AT BEDSIDE AND MANY FAMILY MEMBERS PRESENT. ALL APPEAR TO BE COPING WELL, VISITING IN THE ROOM, EVEN LAUGHING AT TIMES. SOME SIT WITH PT HOLD HER HAND THEN OTHERS MOVE TO THAT POSITION. REFRESHMENTS OFFERED, HOSPITALITY CART STILL CONTAINS MANY ITEMS FRESHENED THIS MORNING. FAMILY DENY NEED OF CLERGY OR OTHER SUPPORT, THANK THIS CAVALRY SCOUT AND STAFF FOR "SUCH GOOD CARE" ORAL CARE PROVIDED TO PT, SHE CONTINUES TO APPEAR COMFORTABLE.
--- NOTE | 2020-08-29 18:12 | NUR ---
NEW IV SITE ESTABLISHED THE OTHER ONE WAS LEAKING. REPOSITIONED PT DID ORAL CARE ASKED FAMILY FOR ANY REQUESTS OR NEEDS. PT MEDICATED WITH MORPHINE FOR AIR HUNGER SHE APPEARS RESTFUL.
--- NOTE | 2020-08-29 19:22 | NUR ---
pt turned at change of shift, agonal breathing O24L NC, generalized edema present, fingers R hand up to wrist white colored and edematous, cold to touch family aware. f/c patent. Family would like pts rings to be passed on to family members when she expires.
--- NOTE | 2020-08-29 22:58 | NUR ---
Pt resp 14, no distress, calm, sats 100% 4LNC, weak faint pulses, Turned and repositioned, procedure explained tolerated well, opens eys and grunts when talked to. eye qtts apply to refresh eye, Morphine 4mg given IV at familys requests, Nyastatin oint applied to abd folds. f/c and jose care done, legs and arms elevated, turned to L side. opens eyes and blink sluggish but present mouth care being done by family frequently. NPO, still non responsive. call light at bedside, family at bedside
--- NOTE | 2020-08-30 01:40 | NUR ---
REPOSITIONED TO R SIDE, GURGLING ORAL SOUND PRESENT, MOVING ARMS, AND EYES OPEN, DELAYED BLINK RESPONSE BUT PRESENT. MOANING, MEDICATED WITH ATROPHINE 1 QTT SUBLINGUAL, AND MORPHINE 4MG IV. O2 4LNC. HEAD REPOSIONED. FAMILY IN ROOM
--- NOTE | 2020-08-30 03:16 | NUR ---
COMFORTABLE, NO RESP DISTRESS. O2 4LNC. MOVING L ARM. FAMILY AT BEDSIDE
--- NOTE | 2020-08-30 05:12 | NUR ---
Pt continues on comfort care, on 4L NC, had agonal breathing at begining of shift, resp even, unlabored at this time. non responsive unless turned, moving Has been medicated 2x with Morphine IV, and 1x with atropine SL x1 and eye qtts x1 per familys requests, with good relief. opens eyes when turned q2h, sluggish reaction. moving arms, generalized edema , extremities elevated. f/c patent . Family at bedside
--- NOTE | 2020-08-30 07:26 | NUR ---
GRAND DAUGHTER APPEARS TO BE SLEEPIG SOUNDLY AT TIME OF REPORT, LEFT ROOM UNDISTURBED. PT APPEARS COMFORTABLE.
--- NOTE | 2020-08-30 08:07 | NUR ---
DR TIJERINA IN TO SEE PT, FAMILY PRESENT ALL QUESTIONS ANSWERED. PT REPOSITONED AND MEDICATED FOR COMFORT. ORAL CARE PROVIDED.
--- NOTE | 2020-08-30 10:08 | NUR ---
PATIENT WAS REPOSITIONED ON RIGHT SIDE USING A TWO PERSON ASSIST, FAMILY IN ROOM NOTHING ELSE TO DOCUMENT AT THIS TIME
--- NOTE | 2020-08-30 10:20 | NUR ---
PT REPOSITONED, ORAL CARE PROVIDED, FAMILY PRESENT AGREE SHE APPEARS COMFORTABLE, DENY NEEDS. KITCHEN NOTIFIED TO ARELI MCCULLOUGH
--- NOTE | 2020-08-30 12:00 | NUR ---
REPOSITIONED PATIENT ON LEFT SIDE
--- NOTE | 2020-08-30 12:19 | NUR ---
PT REPOSITIONED AND ORAL CARE DONE. QUESTIONS ANSWERED FOR FAMILY. PT APPEARS COMFORTABLE FAMILY DENY NEEDS OF
--- NOTE | 2020-08-30 13:35 | NUR ---
PT RESTING IN BED EYES CLOSED RESP UNEVEN/IRREGULAR WITH INCREASED WORK OF BREATHING IN GENERAL, FAMILY ASKED FOR PT HAS MEDICATION TO ASSIST IN COMFORT. 4 MG IV PRN GIVEN AT THIS TIME.
--- NOTE | 2020-08-30 14:04 | NUR ---
PATIENT REPOSITIONED ON RIGHT SIDE
--- NOTE | 2020-08-30 14:13 | NUR ---
PT REPOSITIONED AND ORAL CARE PROVIDED. HUMPHREY CONTINUES TO DRAIN YELLOW URINE, PULSES ARE STRONG. BREATHING MOSTLY EVEN. PT OPENS EYES WITH REPOSITION, RETURNS TO RESTING SOUNDLY WITH REST. FAMILY DENY CONCERNS OR NEEDS
--- NOTE | 2020-08-30 15:12 | NUR ---
AT BEDSIDE. ORDERED TO GIVE ANOTHER 4MG IV FROM PRN ORDER ALSO REMOVED PT OXYGEN AT THIS TIME AFTER SPEAKING WITH THE FAMILY. FAMILY AT BEDSIDE.
--- NOTE | 2020-08-30 15:54 | NUR ---
PT BREATHING IS LABORED AND GASPING FAMILY REQUEST ADDITIONAL MEDICATION. ATROPINE ADMINISTERED AND MORPHINE IS BEING GIVEN
--- NOTE | 2020-08-30 15:57 | NUR ---
PT FAMILY REQUEST MORE COMFORT MEDICATION AT THIS TIME PT APPEARS TO BE STRUGGLING WITH BREATHING. PT GIVEN 4MG IV PRN AT THIS TIME. FAMILY ALL AROUND BED
--- NOTE | 2020-08-30 16:27 | NUR ---
PT FAMILY CONCERN ABOUT PT STRUGGLING, PRIMARY RN AND THIS RN INTO ASSESS PT, PT DUSKY SKIN, FLUID COLLECTING IN EXTREMITIES, PT RESPIRATORY RATE FAST SHORT HUFFS, 22 BREATHS PER MIN., INTERMITTEN GASPS. PT APPEARS TO BE IN DISTRESS PER FAMILY AND OBJECTIVE C DEVELOPER. 4MG IV PRN GIVEN AT THIS TIME.
--- NOTE | 2020-08-30 16:31 | NUR ---
FAMILY CONTINUE AT BEDSIDE PROVIDING COMFORT FOR PT. PT HAS INCREASED LABOR AND RATE OF BREATHING. ORAL CARE AND ATROPINE PROVIDED ADDITIONAL MORPHINE ADMINISTERED PER MD ORDERS
--- NOTE | 2020-08-30 16:53 | NUR ---
REPORT RECEIVED FROM YRN PERES.
--- NOTE | 2020-08-30 18:22 | NUR ---
FAMILY CAME OUT TO GET THIS RN AND STATED THEY THOUGHT SHE HAD PASSED. LISTENED AND DID NOT HEAR A HEART BEAT. CALLED DR TIJERINA AND SHE CAME TO FLOOR TO ASSESS. FAMILY DENIES NEEDS ATT.
--- NOTE | 2020-08-30 20:34 | NUR ---
HUMPHREY CATHETER AND PERIPHERAL IV DC'D. FAMILY REMAINS IN ROOM DURING REMOVAL PER THEIR WISHES. FAMILY DENIES NEEDS AT THIS TIME. QUESTIONS ANSWERED REGARDING ARRIVAL OF HOME. UNDERSTANDING STATED.
--- NOTE | 2020-08-30 21:28 | NUR ---
Called in at 1807 for PT demise on Medsurg. Arrived at approx.1830. Checking in with nursing station and then went into PT's family. I had worked with PT's last week while doing rounds when PT was in the ED. He remembered me and was happy to see me. I consoled the family and went over the procedure and they asked me to pray with the which I did. PT was a donor so we needed to wait to hear from donor line. Called to alert them at 1853. Family was getting impatient as we waited so I call the warehouse picker, Carlos Eduardo. Carlos Eduardo called the donor line to check on the status. I then updated the family. PT's daughter in law asked for information on how to give to [facility]. The CNAs on duty were very helpful and printed information for them. AT 2021 the donor line finally released the body and I called the home at 2022. I let the family know the status and finished up paper work with PT's and the warehouse picker. Jeremiah Hester arrived at 2124 and met with the family. The family said their final good-byes and I helped Jeremiah, with PT's [id number], to transfer the PT. PT's family was very thankful for the care they recieved while PT was here.
== END 2020-08-30 21:25 | DRG 208 ==
LOC: ED 19:51 → CCU 22:03 → MS 08-28 14:45
PROVIDERS: ADMIT Internal Medicine; ATTEND Internal Medicine
PROC: 5A1935Z Respiratory Ventilation, Less than 24 Consecutive Hours (ICD-10-PCS; principal; 2020-08-25)
PROC: 5A09357 Assistance with Respiratory Ventilation, Less than 24 Consecutive Hours, Continuous Positive Airway Pressure (ICD-10-PCS; 2020-08-26)
DX: J96.21 Acute and chronic respiratory failure with hypoxia (principal); E87.2 Acidosis; J96.22 Acute and chronic respiratory failure with hypercapnia; Z20.828 Contact with and (suspected) exposure to other viral communicable diseases; I10 Essential (primary) hypertension; F32.9 Major depressive disorder, single episode, unspecified; J44.9 Chronic obstructive pulmonary disease, unspecified; Z51.5 Encounter for palliative care; Z66 Do not resuscitate; Z99.81 Dependence on supplemental oxygen; Z87.891 Personal history of nicotine dependence; Z88.5 Allergy status to narcotic agent
CPT/HCPCS: 31720; 36600; 51702; 71045; 80048; 80053; 81001; 82803; 83615; 83735; 83880; 84100; 85025; 85651; 94002; 94003; 94640; 94660; 99285-25; C9113; C9803; J1650; J1720; J1956; J2060; J2250; J2270; J2930; J3010; J3475; J3480; J7030; J7060; U0003